=== PATIENT | female | born 1975 | race Caucasian/White ===

== ENCOUNTER 2016-09-15 15:40 | Emergency (ER) | payer SELFPAY ==
[~2016-09-15] VITALS: Ht 165.1 cm; Wt 101.0 kg
[~2016-09-15 15:40] MED LIST: DIPH1TAB36 PO; DIPH2%T; OXYC-360 PO; PREN0.01 PO; ZOLO20CO PO
[2016-09-15 15:43] VITALS: BP 162/89; PULSE 111; RESP 18; TEMP 98.1; O2SAT 96
[2016-09-15] MEDS ORDERED: AUGM875T3 PO (16:24)
--- NOTE | 2016-09-15 16:24 | PD ---
HPI Chief Complaint: ENT Complaint Time Seen by Provider: 15:45 Travel History International Travel<30 days: No Contact w/Intl Traveler<30days: No Traveled to known affect area: No History of Present Illness HPI 40-year-old female presents emergency department for evaluation of sinus pain and pressure. She reports she's had nasal congestion for the last 10 days. Over the last 2 days she developed "greenish" nasal discharge and facial pain. She denies fever, chills. She reports the pain is localized to the frontal and maxillary sinuses, unrelieved by [id number] medicines, 4/10 severity. Patient reports history of sinusitis. PFSH Past Medical History Depression: Yes Diminished Hearing: No Respiratory: Yes (CHRONIC BRONCHITIS) ?: Not LMP: 08/24/16 Past Surgical History Tonsillectomy: Yes Social History Alcohol Use: No Tobacco Use: No Substance Use: No Allergies-Medications (Allergen,Severity, Reaction): Coded Allergies: Morphine (Verified Allergy, Severe, VOMITING, 09/15/16) Septra (Verified Allergy, Severe, RASH,VOMITING, 09/15/16) Vibramycin (Verified Allergy, Severe, RASH,VOMITING, 09/15/16) Uncoded Allergies: LORTAB (Allergy, Severe, VOMITING, 07/01/08) OXYCODONE (Allergy, Severe, VOMITING, 07/01/08) Reported Meds & Prescriptions Reported Meds & Active Scripts Active No Active Prescriptions or Reported Medications Review of Systems Except as stated in HPI: all other systems reviewed are Neg Physical Exam Narrative GENERAL: Alert well-appearing female. No distress SKIN: Focused skin assessment warm/dry. HEAD: Atraumatic. Normocephalic. EYES: Pupils equal and round. No scleral icterus. No injection or drainage. ENT: No nasal bleeding. Reported mucopurulent discharge. Mucous membranes pink and moist. Tender over the frontal maxillary sinuses. NECK: Trachea midline. No JVD. CARDIOVASCULAR: Regular rate and rhythm. No murmur appreciated. RESPIRATORY: No accessory muscle use. Clear to auscultation. Breath sounds equal bilaterally. GASTROINTESTINAL: Abdomen soft, non-tender, nondistended. Hepatic and splenic margins not palpable. MUSCULOSKELETAL: No obvious deformities. No clubbing. No cyanosis. No edema. NEUROLOGICAL: Awake and alert. No obvious cranial nerve deficits. Motor grossly within normal limits. Normal speech. PSYCHIATRIC: Appropriate mood and affect; insight and judgment normal. Data Data Last Documented VS Vital Signs Date Time Temp Pulse Resp B/P Pulse Ox O2 Delivery O2 Flow Rate FiO2 09/15/16 15:43 98.1 111 18 162/89 96 MDM Medical Decision Making Medical Screen Exam Complete: Yes Emergency Medical Condition: Yes Differential Diagnosis Sinusitis, allergic rhinitis, viral infection Narrative Course 40-year-old female since emergency department for evaluation of sinus pain and pressure with reported mucopurulent drainage. Patient has history of sinus infections and reports these symptoms are similar to previous infections. On exam patient has tenderness of the frontal maxillary sinuses. Diagnosis Primary Impression: Sinusitis Qualified Code: J32.1 - Frontal sinusitis, unspecified chronicity Referrals: Primary Care Physician Scripts Amoxicillin-Clavulanate (Augmentin)875-125 Mg Tab1 Tab PO BID #[id number] TAB Prov:Jackelyn Adair 09/15/16 Disposition: 01 DISCHARGE HOME Condition: Stable Jackelyn Adair Sep 15, 2016 16:24
== END 2016-09-15 16:35 | disposition home or self-care (01) ==
LOC: PHEFT 15:40
DX: J32.8 Other chronic sinusitis (principal)
CPT/HCPCS: 99283